=== PATIENT | male | born 1955 | race Caucasian/White ===

== ENCOUNTER 2024-06-07 18:24 | Emergency (ER) | payer BC, SELFPAY ==
[2024-06-07 18:34] VITALS: BP 139/81
[2024-06-07 19:04] LABS: % Basophils 0.3 % (0-2); % Eosinophils 0.9 % (0-6); % Immature Granulocytes 0.3 % (0-0.5); % Lymphocytes 18.6 % (20.5-51.1); % Monocytes 7.5 % (1.7-9.3); % Neutrophils 72.4 % (42.2-75.2); Absolute Eosinophils 0.1 10^3/uL (0-0.7); Absolute Lymphocytes 2.2 10^3/uL (1.2-3.4); Absolute Monocytes 0.9 10^3/uL (0.1-0.6); Absolute Neutrophils 8.6 10^3/uL (1.4-6.5); Hematocrit 40.7 % (39.0-52.0); Hemoglobin 14.9 g/dL (13.0-18.0); Mean Corp Hgb Conc. 36.6 g/dL (33.0-37.0); Mean Corpuscular Hgb 32.5 pg (27.0-31.0); Mean Corpuscular Volume 88.9 fL (80.0-94.0); Mean Platelet Volume 8.8 fL (7.4-10.4); Nucleated Red Blood Cells % 0 % (-); Platelet Count 208 10^3/uL (130-400); Red Blood Cell Count 4.58 10^6/uL (4.70-6.10); Red Cell Dist. Width 12.2 % (11.5-14.5); White Blood Cell Count 11.9 10^3/uL (4.8-10.8)
[2024-06-07 19:14] LABS: ALT (SGPT) 25 U/L (0-50); AST (SGOT) 30 U/L (17-59); Albumin 4.3 g/dl (3.5-5.0); Alkaline Phosphatase 66 U/L (38-126); Blood Urea Nitrogen 19 mg/dl (9-20); Calcium 9.2 mg/dl (8.4-10.2); Carbon Dioxide 25 mmol/L (22-30); Chloride 102 mmol/L (98-107); Glucose 139 mg/dl (70-99); Potassium 4.4 mmol/L (3.5-5.1); Sodium 140 mmol/L (135-145); Total Bilirubin 0.9 mg/dl (0.2-1.3); Total Protein 6.8 g/dl (6.3-8.2); eGFR > 60.00
[2024-06-07 19:43] LABS: Troponin I < 0.012 ng/ml
[2024-06-07 20:44] VITALS: BP 124/79
[2024-06-07 21:44] VITALS: BP 129/78
[2024-06-07] MEDS: ZOFRAN 4 MG IV (21:49)
[2024-06-07] MEDS: ANTIVERT 25 MG PO (21:49)
[2024-06-07 22:00] VITALS: BP 124/72
--- NOTE | 2024-06-07 23:00 | ED.GENMED ---
History of Present Illness
General
Chief Complaint: Dizziness
Source: patient
Exam Limitations: none
Time Seen by Provider: 06/07/24 21:24
History of Present Illness
History of Present Illness:
Patient got up from his chair at about 5 PM with sudden onset of disequilibrium and vertigo. Positional in nature. Moderately improved on ER arrival. No headache visual issues or other neurologic issues. Patient did have some pain or unusual
sensation in his left ear yesterday. Describes a somewhat like ringing.
Past History
Past History
ED Past Medical History: CAD and Hypercholesterolemia
ED Past Surgical History: Other (Melanoma)
Social History
Tobacco: Other
Personal:
Living: with family
Phy Exam
Physical Exam
Physical Exam:
GENERAL: Alert and oriented in no apparent distress
EYE: Orbits normal. Extraocular muscles intact. Some fast component nystagmus to the left. No bidirectional. No rotatory. No vertical
NECK: Supple, no carotid bruit
ENT: Pharynx without erythema
CARDIAC: Regular rate and rhythm without any obvious murmurs.
LUNGS: Clear breath sounds,normal
ABDOMEN: Soft, without focal tenderness or distention
NEUROLOGICAL: Alert and oriented , cranial nerves II through XII intact. Speech normal. Snkkov-[id number] normal. Hqzf-vw-jlkh normal. Touch intact.
SKIN: Warm and dry, no rash or lesion, no discoloration, skin intact.
MUSCULOSKELETAL: No edema,no deformity.Good color
PSYCH: Normal and appropriate interaction.
Course
Orders/Labs/Results
Orders:
Orders
06/07/24 18:26
Electrocardiogram (*1) Urgent
Reason for Study: Vertigo / Dizzy
EKG- Treatment ONCE
06/07/24 18:48
CMP [Comprehensive Metabolic Panel] Urgent
Complete Blood Count/With Diff Urgent
Troponin I Urgent
06/07/24 21:39
CT Head & Neck Angio W/wo IV Urgent
Comment:
Reason For Exam: Disequilibrium/vertical nystagmus
Meclizine [Antivert] 25 mg PO NOW STA
Ondansetron Injectable [Zofran] 4 mg IV NOW STA
Abnormal Lab Results
06/07/24
18:48
WBC 11.9 H 10^3/uL
(4.8-10.8)
RBC 4.58 L 10^6/uL
(4.70-6.10)
MCH 32.5 H pg
(27.0-31.0)
Absolute Neuts (auto) 8.6 H 10^3/uL
(1.4-6.5)
Absolute Monos (auto) 0.9 H 10^3/uL
(0.1-0.6)
Lymphocytes % 18.6 L %
(20.5-51.1)
Glucose 139 H mg/dl
(70-99)
06/07/24 18:48
06/07/24 18:48
Vital Signs
Initial and Last Documented VS:
Initial Vital Signs
Temp Pulse Resp BP Pulse Ox
98.4 F 54 16 139/81 98
06/07/24 18:34 06/07/24 18:34 06/07/24 18:34 06/07/24 18:34 06/07/24 18:34
Last Documented Vital Signs
Temp Pulse Resp BP Pulse Ox
98.4 F 76 24 134/72 98
06/07/24 18:34 06/07/24 23:45 06/07/24 23:45 06/07/24 23:06 06/07/24 20:44
*Radiology
Radiology exam reviewed: radiology read reviewed (Negative)
*EKG
Interpreted by ED Provider?: Yes
Interpretation: abnormal
Comparison EKG: changes noted
Heart Rate: 56
Rate: bradycardiac
Rhythm: sinus
[place]: normal axis
Interval: normal interval
QRS Pattern: normal QRS
Ischemia: non-specific ST changes
*Critical Care Note
Total Time (30-74mins, 75-104mins- exclusive of procedures): Not Applicable
Update Note
Update Note:
Prior to discharge patient ambulated well without difficulty. No wide-based or ataxic gait
Lengthy discussion repeated with the patient and . Very low suspicion for central etiology. Positional. No other neurologic symptoms. No atypical nystagmus.... He did state that initially it felt up and down but clearly on exam it is
unidirectional nystagmus. essential resolution in symptoms. But admission was offered for further testing and observation. Patient is elected for outpatient follow-up which is reasonable
ED Attending Note
-
Portions of this chart may have been created with voice recognition software.� Occasional wrong word or��sound alike� substitutions may have occurred due to the inherent limitations of voice recognition software.
Discharge Plan
Departure
Patient Disposition: Home (Routine Discharge)
Date of Disposition: 06/08/24
Time of Disposition: 00:09
Patient with high blood pressure during this ER visit?: Yes
Discharge Problem:
Dizziness/vertigo
Instructions: Vertigo (a Type of Dizziness) (DC)
Prescriptions:
New
meclizine [Antivert] 25 mg tablet,chewable
25 mg PO Q8HPRN PRN (Reason: nausea or vertigo) Qty: 14 0RF
No Action
atorvastatin 80 MG tablet
80 mg PO QPM Qty: 90 3RF
carvedilol 6.25 MG tablet
6.25 mg PO BID Qty: 120 3RF
aspirin 81 MG tablet,chewable
81 mg PO DAILY Qty: 90 3RF
isosorbide mononitrate 30 mg Tablet Extended Release 24 Hr
30 mg PO DAILY
Referrals:
Ruddy Chaidez MD [Family Provider] - Follow up in 2-3 days
Activity Restrictions/Additional Instructions:
Return with any recurrence of severe symptoms, or any other acute neurologic symptoms
Interventions
Interventions:
*Risk Screen - Suicide Last Done: 06/07/24 18:34
*General Assessment Last Done: 06/07/24 18:34
*Neglect/Abuse Screening Last Done: 06/07/24 18:34
ED- Fall Risk Assessment Last Done: 06/07/24 21:26
*Nursing Disposition Last Done: 06/08/24 00:39
ED- Neurological Assessment Last Done: 06/07/24 21:26
ED- Cardiac Assessment Last Done: 06/07/24 21:26
ED Swallowing Screen Last Done: 06/07/24 21:26
Discharge Date and Time
Discharge Date/Time: 06/08/24 00:40
Print Language: IRISH
[2024-06-07 23:06] VITALS: BP 134/72
== END 2024-06-08 00:40 | disposition home or self-care (01) ==
LOC: EMR 18:24
PROVIDERS: Student in an Organized Health Care Education/Training Program; EMERGENCY PHYSICIAN Emergency Medicine; FAMILY PHYSICIAN Family Medicine
DX: R42 Dizziness and giddiness (principal); I25.10 Atherosclerotic heart disease of native coronary artery without angina pectoris; E78.00 Pure hypercholesterolemia, unspecified; Z85.820 Personal history of malignant melanoma of skin
CPT/HCPCS: 99284; 96374; 70496; 70498; 80053; 84484; 85025; 93005; Q9967